=== PATIENT | female | born 1965 | race African-American/Black ===

== ENCOUNTER 2017-01-08 01:34 | Observation (INO) | payer SELFPAY ==
[~2017-01-08] VITALS: Ht 170.2 cm; Wt 97.0 kg
[2017-01-08] MEDS ORDERED: morphine 4 MG/ML VIAL IV ONE (01:50)
[2017-01-08] MEDS ORDERED: SOD CHLORIDE 0.9% 500 ML IV ONE (01:50)
[2017-01-08] MEDS ORDERED: ONDANSETRON 4 MG INJ IV ONE (01:50)
[2017-01-08 02:23] LABS: BASOPHIL # 0.1 10^3/ul (0.0-0.1); BASOPHILS % 0.6 % (0.0-2.0); EOSINOPHILS # 0.6 10^3/ul (0.0-0.5); EOSINOPHILS % 5.2 % (0.0-7.0); HEMATOCRIT 42.8 % (37.0-47.0); HEMOGLOBIN 14.3 g/dl (12.0-16.0); LYMPHOCYTES # 4.8 10^3/ul (0.8-2.9); MEAN CORPUSCULAR HGB CONC 33.4 g/dl (32.0-37.0); MEAN CORPUSCULAR VOLUME 92.9 fl (82.0-101.0); MEAN PLATELET VOLUME 9.4 fl (7.4-10.4); MONOCYTE # 0.6 10^3/ul (0.3-0.9); MONOCYTES % 5.4 % (0.0-11.0); NEUTROPHIL # 4.7 10^3/ul (1.6-7.5); NEUTROPHILS % 43.8 % (39.0-77.0); PLATELET COUNT 265 10^3/UL (140-440); RED BLOOD COUNT 4.61 10^6/ul (4.20-5.40); RED CELL DISTRIBUTION WIDTH 13.7 % (11.5-14.5); UNCORRECTED WBC 10.7 10^3/ul (4.8-10.8); WHITE BLOOD COUNT 10.7 10^3/ul (4.8-10.8)
[2017-01-08 02:33] LABS: CONDITION 1
[2017-01-08 02:35] LABS: INR 1.12; PARTIAL THROMBOPLASTIN TIME 28.7 Sec (25.0-35.0); PROTIME 14.4 Sec (12.2-14.2); PT RATIO 1.1
[2017-01-08 02:39] LABS: ALBUMIN 4.3 g/dl (3.3-4.9); CHLORIDE 101 mmol/L (97-110)
[2017-01-08 02:40] LABS: POTASSIUM 4.7 mmol/L (3.5-5.1); SODIUM 145 mmol/L (135-144)
[2017-01-08 02:42] LABS: ALBUMIN/GLOBULIN RATIO 1.16; ALKALINE PHOSPHATASE 93 IU/L (42-121); ANION GAP 20 (8-16); ASPARTATE AMINO TRANSFERASE 28 IU/L (15-46); BILIRUBIN,INDIRECT 0.2 mg/dl (0-1.1); BILIRUBIN,TOTAL 0.2 mg/dl (0.2-1.3); BLOOD UREA NITROGEN 12 mg/dl (7-20); CARBON DIOXIDE 29 mmol/L (21-31); CREATININE 0.71 mg/dl (0.44-1.00); GLUCOSE 96 mg/dl (70-220)
[2017-01-08 02:43] LABS: ALANINE AMINOTRANSFERASE 16 IU/L (13-69); CALCIUM 9.5 mg/dl (8.4-10.2)
--- NOTE | 2017-01-08 02:45 | RADRPT ---
PROCEDURE: XR Chest. CLINICAL INDICATION: Chest pain. TECHNIQUE: Single frontal view of the chest was obtained COMPARISON: CT and plain film examinations of the chest dated 07/21/2016. FINDINGS: Complete opacification of the left hemithorax is again seen, compatible with total left pneumonectom y. Again seen is cardiac and mediastinal shift to the left. The cardiac silhouette is obscured. The ri ght lung is hyperinflated. There is no pleural effusion on the right IMPRESSION: 1. Hyperinflated right lung, without pleural effusion on the right. 2. Surgical changes of total left pneumonectomy, with shift of cardiac and mediastinal structures i nto the left hemithorax. 3. The cardiac silhouette cannot be evaluated RPTAT: [facility] Physician Chastity Date Time Electronically viewed and signed by Physician Chastity on 01/08/2017 02:45 RS/
[2017-01-08 02:57] LABS: B-TYPE NATRIURETIC PEPTIDE 101 PG/ML (0-125)
[2017-01-08 03:03] LABS: TROPONIN-I < 0.012 ng/ml (0.00-0.12)
[2017-01-08] MEDS ORDERED: IBUPROFEN 800 MG TAB PO ONE (07:00)
[2017-01-08] MEDS ORDERED: SOD CHLORIDE 0.9% 1,000 ML IV STA (08:05)
[2017-01-08] MEDS ORDERED: KETOROLAC 30 MG INJ IV STA (08:05)
[2017-01-08] MEDS ORDERED: ONDANSETRON 4 MG INJ IV STA (13:59)
[2017-01-08] MEDS ORDERED: morphine 2 MG INJ IV STA (13:59)
[2017-01-08 16:49] VITALS: TEMP 98.3
[2017-01-08 17:05] VITALS: BP 107/68; PULSE 55; RESP 18
[2017-01-08 18:32] VITALS: PULSE 57
[2017-01-08 19:16] VITALS: Ht 170.2 cm; Wt 97.0 kg
[2017-01-08 20:00] VITALS: BP 107/55; RESP 20
[2017-01-08] MEDS: morphine 2 MG INJ IV PRN (20:11)
[2017-01-08 20:34] VITALS: PULSE 58
[2017-01-09] VITALS (12 sets, daily range): BP systolic 106–115; BP diastolic 57–71; PULSE 49–66; RESP 18–21
[2017-01-09] MEDS: morphine 2 MG INJ IV PRN ×6 (00:20→23:54)
[2017-01-09] MEDS: IBUPROFEN 400 MG TAB PO PRN (03:45)
[2017-01-09] MEDS ORDERED: ONDANSETRON 4 MG INJ IV PRN (10:30)
[2017-01-09] MEDS ORDERED: NACL 0.9% 3 ML SYG IV SCH (10:30)
[2017-01-09] MEDS ORDERED: ACETAMINOPHEN 325 MG TAB PO PRN (10:30)
[2017-01-09] MEDS ORDERED: DOCUSATE SODIUM 100 MG CAP PO PRN (10:30)
[2017-01-09 11:48] LABS: CREATINE KINASE 69 IU/L (23-200)
[2017-01-09 11:57] LABS: CK-MB < 0.22 ng/ml (0.0-2.4)
[2017-01-09 12:05] LABS: TROPONIN-I < 0.012 ng/ml (0.00-0.12)
--- NOTE | 2017-01-09 13:00 | HP ---
DATE OF ADMISSION: 01/08/2017 CONSULTANTS: None. CHIEF COMPLAINT: Chest discomfort and left shoulder and scapular pain. HISTORY OF PRESENT ILLNESS: This is a pleasant 52-year-old -[place] female with past medica l history of lung cancer status post lobectomy, who presents to [facility] to having left scapular pain radiating to her anterior chest. The patient denies having any shor tness of breath, although she does complain of having pressure in her anterior chest, which has been going on for the past 3 days. Upon arrival to the emergency room, the patient's troponin was found to be negative. EKG showed normal sinus rhythm, possible left atrial enlargement, nonspecific T-wa ve abnormality, no evidence of ST elevation or depression, no sign of ischemia. The patient was elma ated with morphine and Zofran and has been admitted to telemetry floor for further evaluation and tr eatment. At this time, the patient denies having any chest pain or shortness of breath, although sh e does complain of having left shoulder pain and left scapular pain which has been ongoing. She den ies having any recent travel history. No sick contact. No headache, dizziness, lightheadedness. N o change in visual acuity, diplopia, photophobia. No change in color of stool. No abdominal pain, nausea, vomiting, diarrhea. No neck pain, no restricted range of motion in upper and lower extremit ies. No heat or cold intolerance. No hair loss or any other discomfort. PAST MEDICAL AND SURGICAL HISTORY: 1. Lung cancer. 2. Left lobectomy. MEDICATIONS: None. SOCIAL HISTORY: Denies any history of smoking, alcohol, illicit drugs. FAMILY HISTORY: Positive for hypertension. REVIEW OF SYSTEMS: As above per HPI, otherwise 12 review of systems was found to be negative. PHYSICAL EXAMINATION: VITAL SIGNS: Temperature 98.3, pulse 50, respiration 18, blood pressure 110/65, oxygen 98% in room air. GENERAL APPEARANCE: The patient is lying in bed comfortably without any distress. She is awake, al ert, oriented. She is able to answer my questions properly. EYES AND ENT: Conjunctivae and lids are normal. Hearing grossly normal. Lips within normal. Oral mucosa is moist. NECK: Supple. Trachea is midline. No lymphadenopathy. RESPIRATORY: Effort is normal. Clear to auscultate bilaterally. CARDIOVASCULAR: Normal S1, S2. Regular rhythm and rate. No murmur, no bruits, no edema. Peripher al pulses, radial pulses palpable. Cap refill is normal. CHEST: Normal expansion of thorax during inspiration. GASTROINTESTINAL: Abdomen is soft, nontender, nondistended. Bowel sounds are present. No guarding , no rebound. GENITOURINARY: Deferred. MUSCULOSKELETAL: Upper and lower extremities within normal limits. There is tenderness upon palpat ion of the left posterior thorax which radiates to the front scapular region. NEUROLOGIC: Cranial nerves II through XII are grossly intact. PSYCHIATRIC: Normal judgment and insight. Alert and oriented x3. Mood and affect are normal. LABORATORY WORK AND IMAGING: WBC 10.7, hemoglobin 14.3, hematocrit 42.8, platelets 265. Sodium 145 , potassium 4.7, chloride 101, bicarbonate 29, BUN 12, creatinine 0.71, glucose 96. LFTs all within normal limits. Troponin less than 0.01 normal. ASSESSMENT AND PLAN: 1. Atypical chest pain. This is likely costochondritis . The patient will be admitted to rul e out acute coronary syndrome. The pain is reproducible by palpation of her posterior thorax. We w ill obtain a 2D echocardiogram. Follow serial troponins. Patient has been started on aspirin. Fol low up lipid panel. 2. Costochondritis. The patient has been placed on pain medication. Also, will start the patient on Flexeril. 3. For deep venous thrombosis prophylaxis, on Lovenox. 4. Gastrointestinal prophylaxis not indicated. 5. We will continue to monitor patient closely. Further recommendations, management and treatment as per clinical course. Total amount of time spent for evaluation and admission workup, 35 minutes. Dictated By: RASHMI HOOPER MD PN/NTS Conf#: [id number] DID#: [id number]
[2017-01-09] MEDS: CYCLOBENZAPRINE 10 MG TAB PO SCH ×2 (13:21→21:08)
[2017-01-09] MEDS: ENOXAPARIN 40 MG/0.4 ML SYG SC SCH (13:29)
--- NOTE | 2017-01-09 14:16 | RADRPT ---
Echocardiogram Report Patient Name: PAUL CHRISTIANSON Gender: Female Date: 1965 Study Date: 09-Jan-2017 Cloth Stretcher: Daniel Arguello [facility] Location: 5547 Ref. Physician: RASHMI HOOPER Quality: Technically Difficult Study Procedures: Transthoracic echocardiogram with complete 2D, M-Mode, and doppler examination. Indications: Chest Pain. 2D/M Mode Doppler Measurement Value Normal Ranges Measurement Value Normal Ranges LVIDd 2D 4.9 3.5 - 5.6 cm AV Peak Carlos 1.3 m/sec LVIDs 2D 2.3 2.1 - 4.1 cm AV Peak PG 6.7 mmHg LVPWd 2D 1.0 0.6 - 1.1 cm LVOT Peak Carlos 1.1 m/sec IVSd 2D 0.8 0.6 - 1.1 cm LVOT Peak PG 4.5 mmHg AoR Diam 2D 2.5 2.0 - 3.7 cm MV E Peak Carlos 0.6 m/sec EDV 2D 112.9 cm3 MV A Peak Carlos 0.6 m/sec ESV 2D 12.2 cm3 MV E/A 0.9 LA Dimen 2D 3.2 2.3 - 4.0 cm MV Decel Time 148 msec MV Decel [place] 4 MV E/A 0.9 TR Peak Carlos 2.6 m/sec TR Peak PG 26.7 mmHg RVSP 30.0 mmHg Findings Left Ventricle: Normal left ventricular systolic function. Normal left ventricular cavity size. Normal left ventricular wall thickness. Ejection fraction is visually estimated at 5560 %. Tissue Doppler/Mitral Doppler indices are consistent with impaired relaxation (Stage I diastolic dysfunction). Right Ventricle: Normal right ventricular size. Normal right ventricular systolic function. Left Atrium: The left atrium is normal in size. Right Atrium: The right atrium is normal in size. Mitral Valve: Mitral valve leaflets appear mildly thickened. Mild mitral annular calcification. Trace mitral regurgitation. Aortic Valve: Normal appearance of the aortic valve. No significant aortic stenosis or insufficiency. Tricuspid Valve: Normal appearance of the tricuspid valve. Estimated peak PA systolic pressure 30 mmHg. There is trace tricuspid regurgitation. Pericardium: Trivial pericardial effusion. Aorta: Normal aortic root. IVC: Normal size and normal respiratory collapse consistent with normal right atrial pressure. Conclusions 1.Normal left ventricular systolic function. Normal left ventricular cavity size. Normal left ventricular wall thickness. Ejection fraction is visually estimated at 55-60 %. Tissue Doppler/Mitral Doppler indices are consistent with impaired relaxation (Stage I diastolic dysfunction). 2.Mitral valve leaflets appear mildly thickened. Mild mitral annular calcification. Trace mitral regurgitation. 3.Normal appearance of the tricuspid valve. Estimated peak PA systolic pressure 30 mmHg. There is trace tricuspid regurgitation. 4.Trivial pericardial effusion. Electronically Signed By: Jose Pena 09-Jan-2017 14:15:00 -0800 Patient Name: PAUL CHRISTIANSON Study Date: 09-Jan-2017 [id number]
--- NOTE | 2017-01-09 14:47 | RADRPT ---
PROCEDURE: CR left shoulder CLINICAL INDICATION: Shoulder pain TECHNIQUE: 2 views performed COMPARISON: 07/22/2016 FINDINGS: There is a tiny calcification in the region of the supraspinatus insertion (consistent with calcific supraspinatus tendinosis). There is normal mineralization, architecture and alignment.No fracture or osseous lesion is identifi ed.The glenohumeral and acromioclavicular joints are unremarkable. The soft tissues are unremarkable . Left pneumonectomy. IMPRESSION: Calcification in the region of the supraspinatus insertion (consistent with calcific supraspinatus t endinosis). Otherwise an unremarkable examination. RPTAT: [facility] .Horacio Umaña MD, Date Time Electronically viewed and signed by .Horacio Umaña MD, on 01/09/2017 14:47 .B/
[2017-01-09 17:05] LABS: CREATINE KINASE 69 IU/L (23-200)
[2017-01-09 17:30] LABS: CK-MB < 0.22 ng/ml (0.0-2.4); TROPONIN-I < 0.012 ng/ml (0.00-0.12)
[2017-01-09 22:47] LABS: CREATINE KINASE 58 IU/L (23-200)
[2017-01-09 23:06] LABS: CK-MB < 0.22 ng/ml (0.0-2.4); TROPONIN-I < 0.012 ng/ml (0.00-0.12)
[2017-01-10] VITALS (10 sets, daily range): BP systolic 103–128; BP diastolic 60–73; PULSE 52–68; RESP 18–20
[2017-01-10] MEDS: IBUPROFEN 400 MG TAB PO PRN ×2 (03:25→12:12)
[2017-01-10 07:33] LABS: ADD SCAN DIFF NO
[2017-01-10 07:44] LABS: BASOPHIL # 0.1 10^3/ul (0.0-0.1); BASOPHILS % 1.2 % (0.0-2.0); EOSINOPHILS # 0.4 10^3/ul (0.0-0.5); EOSINOPHILS % 7.4 % (0.0-7.0); HEMOGLOBIN 11.9 g/dl (12.0-16.0); LYMPHOCYTES # 2.9 10^3/ul (0.8-2.9); LYMPHOCYTES % 48.1 % (15.0-51.0); MEAN CORPUSCULAR HEMOGLOBIN 30.7 pg (29.0-33.0); MEAN CORPUSCULAR HGB CONC 32.2 g/dl (32.0-37.0); MEAN CORPUSCULAR VOLUME 95.4 fl (82.0-101.0); MEAN PLATELET VOLUME 11.1 fl (7.4-10.4); MONOCYTE # 0.5 10^3/ul (0.3-0.9); MONOCYTES % 8.1 % (0.0-11.0); NEUTROPHIL # 2.1 10^3/ul (1.6-7.5); NEUTROPHILS % 35.2 % (39.0-77.0); PLATELET COUNT 212 10^3/UL (140-415); RED BLOOD COUNT 3.88 10^6/ul (4.20-5.40); RED CELL DISTRIBUTION WIDTH 13.2 % (11.5-14.5); WHITE BLOOD COUNT 5.9 10^3/ul (4.8-10.8)
[2017-01-10 08:01] LABS: MAGNESIUM 1.9 mg/dl (1.7-2.5)
[2017-01-10 08:02] LABS: CHOL/HDL RATIO 3.3 RATIO
[2017-01-10 08:25] LABS: THYROID STIMULATING HORMONE 1.02 MIU/L (0.465-4.680)
[2017-01-10] MEDS: CYCLOBENZAPRINE 10 MG TAB PO SCH ×2 (08:27→12:12)
[2017-01-10] MEDS: morphine 2 MG INJ IV PRN ×2 (08:31→14:49)
[2017-01-10] MEDS: ENOXAPARIN 40 MG/0.4 ML SYG SC SCH (08:34)
[2017-01-10] MEDS ORDERED: INFLUENZA VIRUS VACCINE 0.5 ML (DISPENSING) IM* ONE (09:00)
--- NOTE | 2017-01-10 16:35 | PDOCDIS ---
Discharge Instructions CONDITION Patient Condition: Stable HOME CARE INSTRUCTIONS: Diet Instructions: Low Fat /Cholesterol ACTIVITY: Activity Restrictions: Slowly Increase Activity Rest between Activity Avoid heavy lifting FOLLOW UP/APPOINTMENTS Appointments Follow up with PCP as out-pt RASHMI HOOPER MD Jan 10, 2017 16:35
[2017-01-10] MEDS ORDERED: IBUP400T22 PO (16:37)
[2017-01-10] MEDS ORDERED: CYCL-319 PO (16:37)
[2017-01-10] MEDS ORDERED: TRAM50TA2 PO (16:37)
--- NOTE | 2017-01-11 09:31 | DS ---
DATE OF ADMISSION: 01/08/2017 DATE OF DISCHARGE: 01/10/2017 CONSULTANTS: None. PROCEDURES: A 2D echocardiogram. DISCHARGE DIAGNOSES: 1. Left shoulder tendinitis. The patient will be discharged home on tramadol and Motrin and Flexer il. The patient also has been instructed to use heat pad. 2. History of left pneumonectomy stable. LABORATORY DATA: WBC 5.9, hemoglobin 11.9, hematocrit 37.0, platelet 212, triglyceride 62, total ch olesterol 144, LDL 89, HDL 43. TSH 1.02. Troponin negative x4. MEDICATIONS: 1. Tramadol 50 mg. 2. Motrin 400 mg 3. Zyprexa 10 mg. DISPOSITION: Home. DIET: Regular diet. ACTIVITY: As tolerated. HOSPITAL COURSE: This is a very pleasant 52-year-old female with history of left pneumonectomy, who presents to [facility] secondary to having left-sided shoulder and chest discomfo rt which has been off and on for the past 4 months with increased severity of left shoulder pain an d chest pain for the past 3 days. The patient presented to [facility] where her E KG was found to be normal sinus rhythm, possible left atrial enlargement, no acute ST elevation or d epression, no sign of ischemia. Serial troponins were found to be negative. A 2D echocardiogram wa s obtained which showed normal ejection fraction with no valvular discomfort. Patient's vitals have been stable with temperature 98.4, pulse 70, respiration 19, blood pressure , oxygen 96% to 10 0% in room air. The patient had an x-ray of her left shoulder which was positive for supraspinatus tendinitis. The patient has been placed on Motrin pain medication and at this time, the patient is stable to be discharged home. The patient's chest pain was ruled out/acute coronary syndrome was ru led out with negative troponin and EKG and normal 2D echocardiogram. The patient will be discharged home in stable condition with close followup with primary care physician as outpatient. Total amount of time was spent for this patient on discharge workup 40 minutes. Dictated By: RASHMI RUIZ/NTS Conf#: [id number] DID#: [id number]
== END 2017-01-10 18:37 | disposition home or self-care (01) ==
LOC: E/R 01:34 → MS4 02:55 → UNDOADMOB 17:22 → MS4 17:22
PROVIDERS: ADMIT Family Medicine; ATTEND Family Medicine
DX: M75.32 Calcific tendinitis of left shoulder (principal); R07.89 Other chest pain; M94.0 Chondrocostal junction syndrome [Tietze]; Z85.118 Personal history of other malignant neoplasm of bronchus and lung; Z23 Encounter for immunization; Z82.49 Family history of ischemic heart disease and other diseases of the circulatory system
CPT/HCPCS: 71010; 73030; 80053; 80061; 82550; 82553; 83735; 83880; 84443; 84484; 85025; 85610; 85730; 90686; 93005; 93306; 96372; 96374; 96376; G0378; J1650; J1885; J2270; J2405; J7030; J7040

== ENCOUNTER 2019-08-08 18:33 | Emergency (ER) | payer OTHER ==
[~2019-08-08] VITALS: Ht 182.9 cm; Wt 99.8 kg
[~2019-08-08 18:33] MED LIST: CYCL10TA7 PO; IBUP-1541 PO; TRAM50TA2 PO
[2019-08-08 18:35] VITALS: Ht 182.9 cm; Wt 99.8 kg
[2019-08-08] MEDS ORDERED: DEXAMETHASONE 10 MG/ML 1 ML INJ IM STA (19:22)
[2019-08-08] MEDS ORDERED: ALBUTEROL 0.083% (NEB) 2.5 MG/3 ML AMP NEB STA (19:22)
[2019-08-08] MEDS ORDERED: IPRATROPIUM (NEB) 0.5 MG/2.5 ML AMP NEB STA (19:22)
[2019-08-08] MEDS ORDERED: IBUPROFEN 800 MG TAB PO ONE (20:00)
[2019-08-08] MEDS ORDERED: HYDROCODONE/APAP (5/325) TAB PO ONE (20:00)
[2019-08-08 20:15] VITALS: BP 145/72; PULSE 88; RESP 16
== END 2019-08-08 20:25 | disposition home or self-care (01) ==
LOC: FTE 18:33
DX: M54.12 Radiculopathy, cervical region (principal); R06.2 Wheezing; Z85.118 Personal history of other malignant neoplasm of bronchus and lung
CPT/HCPCS: 94664; J1100; Z7610; 96372